=== PATIENT | male | born 1960 | race Caucasian/White ===

== ENCOUNTER 2020-12-08 07:10 | Inpatient (IN) | payer OTHER, SELFPAY ==
[~2020-12-08] VITALS: Ht 157.5 cm; Wt 72.6 kg
[2020-12-08] MEDS: DEXT 5% /NACL 0.9% 1,000 ML IV SCH ×2 (02:30→11:38)
--- NOTE | 2020-12-08 07:10 | NUR ---
Patient BIBA ALS, transferred to bed 4. RN evaluating the patient at bedside.
[2020-12-08 07:15] VITALS: BP 117/68
--- NOTE | 2020-12-08 07:18 | NUR ---
Dr. Angulo is evaluating the patient at bedside.
[2020-12-08] MEDS ORDERED: NACL 0.9% 1,000 ML IV ONE (07:20)
[2020-12-08] MEDS ORDERED: PANTOPRAZOLE 80 MG in NACL 0.9% 100 ML IVP SCH (07:20)
[2020-12-08] MEDS ORDERED: PANTOPRAZOLE 40 MG INJ VIAL IVP ONE (07:20)
--- NOTE | 2020-12-08 07:40 | NUR ---
PT TAKEN TO CT VIA VERONICA
--- NOTE | 2020-12-08 07:42 | NUR ---
60 Y/O MALE BIBA C/O SYNCOPE TODAY. PER EMS PT HAS BLACK TARRRY STOOL FOR 3 DAYS WITH DIZZINESS. DENIES LOC, NAUSEA, VOMITING, OR PAIN. PT IS PALE SKIN COLOR. WARM TO TOUCH. ABD SOFT NON TENDER. MEDHX: DENIES NKA
--- NOTE | 2020-12-08 07:47 | NUR ---
PT RETURNED FROM CT
--- NOTE | 2020-12-08 08:00 | NUR ---
BLOOD LABS, URINE AND GIA SAMPLES COLLECTED AND SENT TO LAB. HANDED TO CPT KT
[2020-12-08 08:15] LABS: LYMPHOCYTES # (AUTO) 1.2 K/uL (2.0-11.5); MEAN CORPUSCULAR HEMOGLOBIN 31 pg (27-31); MONOCYTES # (AUTO) 0.7 K/uL (0.8-1.0); RED BLOOD CELL COUNT(AUTO) 2.07 MIL/uL (4.20-6.10)
[2020-12-08 08:16] LABS: APPEARANCE,URINE CLEAR (CLEAR); BILIRUBIN,URINE NEGATIVE (NEGATIVE); BLOOD, URINE 1+ (NEGATIVE); COLOR,URINE YELLOW (YELLOW); LEUKOCYTE ESTERASE ,URINE NEGATIVE (NEGATIVE); NITRITE, URINE NEGATIVE (NEGATIVE); UGLUCOSE TRACE (NEGATIVE)
[2020-12-08 08:19] LABS: BASOPHILS % (AUTO) 0.2 % (0.0-2.0); LYMPHOCYTES % (AUTO) 7.9 % (20.5-51.1); MEAN CORPUSCULAR HGB CONC 34 g/dL (33-37); MEAN CORPUSCULAR VOLUME 89.4 fL (80-94); MONOCYTES % (AUTO) 4.9 % (1.7-9.3); NEUTROPHILS # (AUTO) 13.2 K/uL (1.8-7.7); PLATELET COUNT (AUTO) 181 K/uL (140-450); RED CELL DISTRIBUTION WIDTH 14.8 % (11.6-13.7); WHITE BLOOD COUNT (AUTO) 15.2 K/uL (4.8-10.8)
[2020-12-08 08:25] LABS: ANION GAP 18.3 (8-16); CARBON DIOXIDE 18.6 mmol/L (21-32); CREATININE 1.2 mg/dL (0.6-1.3); HEMATOCRIT 18.5 % (36-52); HEMOGLOBIN 6.4 g/dL (12.0-18.0); POTASSIUM 3.9 mmol/L (3.5-5.1)
[2020-12-08 08:31] LABS: ALBUMIN 2.8 g/dL (3.4-5.0); TOTAL BILIRUBIN 0.4 mg/dL (0.0-1.0)
[2020-12-08] MEDS ORDERED: NACL 0.9% 1,500 ML IV ONE (08:40)
[2020-12-08 08:45] LABS: HYALINE CASTS, URINE 0-10 /LPF (None Seen); RBC,URINE 0-5 /HPF (0-5); WBC,URINE 0-5 /HPF (0-5)
[2020-12-08] MEDS ORDERED: cefTRIAXone 1,000 MG VIAL ONE (08:50)
[2020-12-08 08:51] LABS: PROTHROMBIN TIME 10.8 secs (10.8-13.4)
--- NOTE | 2020-12-08 09:45 | NUR ---
Consent signed per DR ELIZABETH agreeing to administration of blood. Blood has been type and crossmatched. Blood sent from blood bank. Information on unit of blood checked against patient wristband at bedside by two nurses. All information matches. Patient or responsible republican informed of potential complications associated with blood transfusion. Informed of possible transfusion reaction symptoms. Aware of need to notify nurse at once of itching, shortness of breath, flushing, feeling of impending doom, or other symptoms not previously present. Vital signs taken within 5 minutes prior to initiation of transfusion. RN will remain with patient for first 15 minutes of transfusion at which time vital signs will be re-assessed.
--- NOTE | 2020-12-08 09:59 | NUR ---
The patient's niece, Osmar Fung, may be reached at [phone].
--- NOTE | 2020-12-08 10:03 | NUR ---
The patient's sister, Crystal, is at bedside.
[2020-12-08] MEDS ORDERED: POTASSIUM CHLORIDE 10 MEQ TABER PO PRN (10:25)
[2020-12-08] MEDS ORDERED: ONDANSETRON 4 MG/2 ML VIAL IVP PRN (10:25)
[2020-12-08] MEDS ORDERED: LORazepam 1 MG TAB PO PRN (10:25)
[2020-12-08] MEDS ORDERED: MAG SULF 2000 MG/WATER PREMIX 50 ML IV PRN (10:25)
[2020-12-08] MEDS ORDERED: HYDROcodone/APAP 5/325 MG 1 TAB TAB PO PRN (10:25)
[2020-12-08] MEDS ORDERED: MORPHINE SULFATE 4 MG/ML SYR IVP PRN (10:25)
[2020-12-08] MEDS ORDERED: MAGNESIUM OXIDE 400 MG TAB PO PRN (10:25)
[2020-12-08] MEDS ORDERED: KCL 20 MEQ/WATER INJ PREMIX 200 ML IV PRN (10:25)
[2020-12-08] MEDS ORDERED: ACETAMINOPHEN 325 MG TAB PO PRN (10:25)
--- NOTE | 2020-12-08 10:44 | NUR ---
LAB AT BEDSIDE
--- NOTE | 2020-12-08 11:45 | NUR ---
Patient awake, resting in bed. Vital Signs within normal limits. Respirations even and unlabored. Chest rise is symmetrical. Will continue to monitor.
--- NOTE | 2020-12-08 13:00 | NUR ---
2ND UNIT OF BLOOD STARTED, VERIFIED WITH TWO RN'S AT BEDSIDE. GILBERTO BAUER AND TRELL BAUER
--- NOTE | 2020-12-08 13:45 | NUR ---
Dr. David Worthy is evaluating the patient at bedside.
--- NOTE | 2020-12-08 14:00 | NUR ---
Patient will be admitted to care of DR BERTRAND. Admited to TELEMETRY. Will go to room 112 B. Belongings list completed. Report to SAM BAUER. Pt will go to OR for EGD and transferred to 112 B after procedure.
[2020-12-08] MEDS ORDERED: fentaNYL citrate 0.05 MG/ML VIAL ONE (14:22)
[2020-12-08] MEDS ORDERED: MIDAZOLAM 5 MG/5 ML VIAL ONE (14:22)
[2020-12-08] MEDS ORDERED: diphenhydrAMINE 50 MG/ML VIAL ONE (14:22)
[2020-12-08] MEDS ORDERED: MIDAZOLAM 2 MG/2 ML VIAL IVP ONE (14:45)
[2020-12-08] MEDS ORDERED: SENNA 8.6 MG TAB PO SCH (14:45)
[2020-12-08] MEDS ORDERED: fentaNYL citrate 0.05 MG/ML VIAL IVP ONE (14:45)
--- NOTE | 2020-12-08 15:05 | NUR ---
RECEIVED PATIENT FROM OR S/P EGD. WITH BLOOD TRANSFUSION TO RIGHT AC 20G. PT ARRIVED BY VERONICA. ASLEEP, AWAKABLE BY VOICE ON RA. NO ACUTE DISTRESS NOTED AT THIS TIME. WILL CONTINUE TO MONITOR.
[2020-12-08 15:10] VITALS: BP 96/52
--- NOTE | 2020-12-08 15:10 | NUR ---
RECEIVED REPORT FROM ER NURSE FOR CONTINUITY OF CARE. PATIENT CAME WITH CC BLACK TARRY STOOL. DX WITH GI BLEEDING. NO PAST MEDICAL HISTORY PER ER NURSE. AAOX4, AMBULATORY, IV TO RIGHT AC 20G TRANSFUSING SECOND UNIT OF BLOOD, TOTALLY 3 UNITS OF BLOOD ORDERED. H/H 6.4/18.5. IVF INFUSING D5 NS@ 80ML/HR AND PROTONIX @ 10ML/HR. WILL CONTINUE TO MONITOR.
[2020-12-08] MEDS: LACTULOSE 20 GM/30 ML UDC PO SCH ×2 (17:18→19:56)
[2020-12-08] MEDS: PANTOPRAZOLE 80 MG in NACL 0.9% 100 ML IVP SCH (17:57)
--- NOTE | 2020-12-08 19:10 | NUR ---
ENDORSED PATIENT TO REHABILITATION CONSULTANT RN FOR CONTINUITY OF CARE. PATIENT IN STABLE CONDITION.
--- NOTE | 2020-12-08 19:11 | NUR ---
RECEIVED REPORT FROM DAY SHIFT NURSE. PT IN BED RESTING. PT AAOX4, AMBULATORY, AND ABLE TO MAKE NEEDS KNOWN. RESPIRATIONS ARE EVEN AND UNLABORED TO ROOM AIR. ABDOMEN IS SOFT AND NON-TENDER. SKIN IS WARM, DRY, AND INTACT. PT WITH IV ACCESS ON LEFT HAND G 20 AND RIGHT AC G20 BOTH PATENT AND INTACT, IVF INFUSING WELL. PT DENIES ANY PAIN OR DISCOMFORT AT THIS TIME. NO REQUESTS MADE. PT KEPT COMFORTABLE, CALL LIGHT WITHIN REACH. WILL CONTINUE TO MONITOR.
--- NOTE | 2020-12-08 19:56 | NUR ---
VS STABLE. SCHEDULED MEDS GIVEN ORDERED. PT NOT IN DISTRESS AND DENIES ANY PAIN OR DISCOMFORT. PT KEPT COMFORTABLE. WILL CONTINUE TO MONITOR.
[2020-12-08 20:00] VITALS: BP 105/53
[2020-12-08] MEDS ORDERED: MAGNESIUM CITRATE 300 ML BTL PO SCH (20:00)
--- NOTE | 2020-12-08 20:50 | NUR ---
BLOOD TRANSFUSION STARTED. 2 NURSE VERIFICATION DONE PRIOR. PRE TRANSFUSION VS STABLE. WILL CONTINUE TO MONITOR.
[2020-12-08] MEDS ORDERED: ZOLPIDEM 5 MG TAB PO PRN (21:00)
--- NOTE | 2020-12-08 22:52 | NUR ---
PT RESTING IN BED. BLOOD TRANSFUSION ONGOING. VSS. PT DENIES ANY PAIN OR DISCOMFORT AT THIS TIME. NO REQUESTS MADE AT THIS TIME. PT KEPT COMFORTABLE. CALL LIGHT WITHIN REACH. WILL CONTINUE TO MONITOR.
--- NOTE | 2020-12-08 23:35 | NUR ---
BLOOD TRANSFUSION DONE. PT TOLERATED WELL. NO REACTION NOTED. VSS. PT DENIES ANY PAIN OR DISCOMFORT. WILL CONTINUE TO MONITOR.
[2020-12-09] VITALS: BP 109/51
--- NOTE | 2020-12-09 00:21 | NUR ---
VS STABLE. PT IN BED RESTING. IVF INFUSING WELL. PT KEPT NPO. PT NOT IN PAIN. NO DISTRESS NOTED. NO REQUESTS MADE AT THIS TIME. PT KEPT COMFORTABLE. SAFETY MEASURES IN PLACE, CALL LIGHT WITHIN REACH. WILL CONTINUE TO MONITOR.
[2020-12-09 01:36] LABS: BASOPHILS % (AUTO) 0.3 % (0.0-2.0); EOSINOPHILS # (AUTO) 0.1 K/uL (0-0.4); EOSINOPHILS % (AUTO) 0.7 % (0.0-4.0); HEMATOCRIT 26.5 % (36-52); LYMPHOCYTES # (AUTO) 2.3 K/uL (2.0-11.5); LYMPHOCYTES % (AUTO) 18.3 % (20.5-51.1); MEAN CORPUSCULAR HEMOGLOBIN 30 pg (27-31); MEAN CORPUSCULAR HGB CONC 34 g/dL (33-37); MEAN CORPUSCULAR VOLUME 88.9 fL (80-94); MONOCYTES % (AUTO) 7.9 % (1.7-9.3); NEUTROPHILS % (AUTO) 72.8 % (42.2-75.2); PLATELET COUNT (AUTO) 139 K/uL (140-450); RED BLOOD CELL COUNT(AUTO) 2.98 MIL/uL (4.20-6.10); RED CELL DISTRIBUTION WIDTH 14.3 % (11.6-13.7); WHITE BLOOD COUNT (AUTO) 12.4 K/uL (4.8-10.8)
--- NOTE | 2020-12-09 02:16 | NUR ---
PT ASLEEP. VISIBLE CHEST RISE AND FALL NOTED. PT NOT IN DISTRESS. NO S/SX OF PAIN OR DISCOMFORT. PT KEPT COMFORTABLE. SAFETY MEASURES IN PLACE. CALL LIGHT WITHIN REACH. WILL CONTINUE TO MONITOR.
[2020-12-09] MEDS: PANTOPRAZOLE 80 MG in NACL 0.9% 100 ML IVP SCH ×2 (03:19→12:30)
[2020-12-09 04:00] VITALS: BP 102/57
--- NOTE | 2020-12-09 04:23 | NUR ---
VS STABLE. PT DENIES ANY PAIN OR DISCOMFORT AT THIS TIME. NO REQUESTS MADE AT THIS TIME. IVF INFUSING WELL. PT KEPT COMFORTABLE. CALL LIGHT WITHIN REACH. WILL CONTINUE TO MONITOR.
[2020-12-09] MEDS ORDERED: MAGNESIUM CITRATE 300 ML BTL PO SCH (06:00)
[2020-12-09 06:46] LABS: BASOPHILS # (AUTO) 0.1 K/uL (0.00-0.22); BASOPHILS % (AUTO) 0.6 % (0.0-2.0); EOSINOPHILS # (AUTO) 0.2 K/uL (0-0.4); EOSINOPHILS % (AUTO) 1.4 % (0.0-4.0); HEMATOCRIT 27.1 % (36-52); HEMOGLOBIN 9.2 g/dL (12.0-18.0); LYMPHOCYTES % (AUTO) 26.2 % (20.5-51.1); MEAN CORPUSCULAR HEMOGLOBIN 30 pg (27-31); MEAN CORPUSCULAR HGB CONC 34 g/dL (33-37); MEAN CORPUSCULAR VOLUME 88.9 fL (80-94); MONOCYTES # (AUTO) 0.7 K/uL (0.8-1.0); MONOCYTES % (AUTO) 6.1 % (1.7-9.3); NEUTROPHILS # (AUTO) 7.6 K/uL (1.8-7.7); NEUTROPHILS % (AUTO) 65.7 % (42.2-75.2); PLATELET COUNT (AUTO) 142 K/uL (140-450); RED BLOOD CELL COUNT(AUTO) 3.05 MIL/uL (4.20-6.10); RED CELL DISTRIBUTION WIDTH 14.2 % (11.6-13.7); WHITE BLOOD COUNT (AUTO) 11.5 K/uL (4.8-10.8)
[2020-12-09 07:02] LABS: CHOL/HDL RATIO 5.2 (1-4.5); MAGNESIUM 2.4 mg/dL (1.8-2.4); PHOSPHORUS 1.7 mg/dL (2.5-4.9)
[2020-12-09 07:04] LABS: ALBUMIN 2.8 g/dL (3.4-5.0); ANION GAP 12.5 (8-16); POTASSIUM 3.5 mmol/L (3.5-5.1); TOTAL BILIRUBIN 0.7 mg/dL (0.0-1.0)
--- NOTE | 2020-12-09 07:24 | NUR ---
ENDORSED TO DAY SHIFT NURSE FOR CONTINUITY OF CARE
--- NOTE | 2020-12-09 07:25 | NUR ---
RECEIVED PATIENT FROM NIGHT NURSE. PATIENT IN BED AWAKE AND ALERT, ORIENTED X4. RESP EVEN AND UNLABORED ON ROOM AIR. DENIED OF PAIN AT THIS TIME. RAC 20G INFUSING D5NS AND PROTONIX. PLAN OF CARE DISCUSSED, PATIENT VERBALIZED UNDERSTANDING. HOB ELEVATED. SAFETY MEASURES IN PLACE. CALL LIGHT WITHIN REACH. WILL CONTINUE TO MONITOR.
[2020-12-09 08:00] VITALS: BP 104/50
--- NOTE | 2020-12-09 08:58 | NUR ---
PATIENT HAS BEEN SCREENED AND CATEGORIZED LOW NUTRITION RISK. PATIENT WILL BE SEEN WITHIN 7 DAYS OF ADMISSION. 12/14/[address]
[2020-12-09] MEDS: LACTULOSE 20 GM/30 ML UDC PO SCH ×2 (09:16→12:30)
--- NOTE | 2020-12-09 09:16 | NUR ---
PATIENT IN BED AWAKE AND ALERT. RESP EVEN AND UNLABORED ON ROOM AIR. DENIED OF PAIN AT THIS TIME. MORNING ROUTINE MEDICATION GIVEN, PATIENT TOLERATED WELL. PATIENT REPORTED HAVING BOWEL MOVEMENT, BLACK TARRY STOOL, NO ACTIVE BLEEDING AT THIS TIME. COLONOSCOPY SCHEDULED AT [address] MEJÍA. PLAN OF CARE DISCUSSED, PATIENT VERBALIZED UNDERSTANDING. SKIN WARM TO TOUCH AND DRY. PATIENT AMBULATED TO THE BATHROOM WITH STEADY GAIT. LH IV ACCESS DISLODGED. RAC 20G INTACT AND PATENT INFUSING WELL. CALL LIGHT WITHIN REACH. WILL CONTINUE TO MONITOR.
[2020-12-09] MEDS: DEXT 5% /NACL 0.9% 1,000 ML IV SCH (11:25)
--- NOTE | 2020-12-09 11:25 | NUR ---
PATIENT AWAKE AND ALERT. ABLE TO AMBULATE TO THE BATHROOM WITH STEADY GAIT. DENIED OF PAIN AT THIS TIME. CALL LIGHT WITHIN REACH. WILL CONTINUE TO MONITOR.
[2020-12-09 12:00] VITALS: BP 125/72
[2020-12-09] MEDS ORDERED: SUCR1TAB35 PO (12:01)
[2020-12-09] MEDS ORDERED: PANT40EC PO (12:01)
--- NOTE | 2020-12-09 12:41 | NUR ---
DR MEJÍA MADE AWARE OF PATIENT BOWEL BEING CLEAR FOR PROCEDURE.
[2020-12-09] MEDS ORDERED: MIDAZOLAM 5 MG/5 ML VIAL ONE (13:00)
[2020-12-09] MEDS ORDERED: diphenhydrAMINE 50 MG/ML VIAL ONE (13:00)
[2020-12-09] MEDS ORDERED: fentaNYL citrate 0.05 MG/ML VIAL ONE (13:00)
--- NOTE | 2020-12-09 13:14 | NUR ---
PATIENT LEFT TO OR FOR COLONOSCOPY PROCEDURE WITH DR MEJÍA. PATIENT LEFT IN STABLE CONDITION.
[2020-12-09] MEDS: MIDAZOLAM 2 MG/2 ML VIAL IVP ONE ×2 (13:41→14:52)
[2020-12-09] MEDS: fentaNYL citrate 0.05 MG/ML VIAL IVP ONE ×2 (13:42→14:51)
--- NOTE | 2020-12-09 14:04 | NUR ---
DC PLANNING: CALLED [facility] RAOUL ELIEZER [phone] LEFT A MESSAGE. FAXED THE ORDER FOR OUT PATIENT REFERRAL FOR UROLOGIST AND GI. CM TO FOLLOW Addendum: 12/09/20 at 1714 by Sheeba Waterman RN DC PLANNING: RECEIVED A CALL FROM AT [facility] PROVIDED THE 3 DR'S APPOINTMENT. WITH [employer] APPLICATOR PA WITH DR SAMMY HOWARD ON DECEMBER 11, 2020 AT 10:30AM TELE CONFERENCE. WITH GI DR EVELYN WINTER ON JANUARY 07, 2021 AT 5 [place] [id number] [facility] [address] [place] ,[id number] # [phone] NATALIE IVEY ON December AT 11:30 AM THE [address]ESS [id number] [facility] [address] [place] [address] TEL # [phone] . PROVIDE APPOINTMENT REMINDER TO PT. CLARIFIED HIS PHONE NUMBER [phone] .PATIENT VERBALIZED UNDERSTANDING.
--- NOTE | 2020-12-09 14:20 | NUR ---
PATIENT CAME BACK FROM COLONOSCOPY PROCEDURE. MILD DROWSY BUT ALERT. ABLE TO FOLLOW COMMANDS. RESP EVEN AND UNLABORED ON ROOM AIR. DENIED OF PAIN AT THIS TIME. CALL LIGHT WITHIN REACH. WILL CONTINUE TO MONITOR.
[2020-12-09 16:00] VITALS: BP 108/61
[2020-12-09 16:36] VITALS: BP 108/61
[2020-12-09] MEDS ORDERED: FERROUS SULFATE 325 MG TABEC PO SCH (17:00)
[2020-12-09] MEDS ORDERED: metroNIDAZOLE 500 MG TAB PO SCH (17:00)
--- NOTE | 2020-12-09 17:15 | NUR ---
PATIENT LEFT DISCHARGED HOME WITH FAMILY. DISCHARGE INSTRUCTIONS GIVEN. DIESEL MECHANIC CONSTRUCTION AT BEDSIDE GIVING PATIENT INSTRUCTIONS AND FOLLOW UP APPOINTMENTS MADE. PATIENT VERBALIZED UNDERSTANDING. VACC N/A. PATIENT LEFT IN STABLE CONDITION.
--- NOTE | 2020-12-09 19:41 | NUR ---
LATE ENTRY- PANTOPRAZOLE IV INFUSION DISCONTINUED AT 1400
[2020-12-09] MEDS ORDERED: AMOXICILLIN 500 MG CAP PO SCH (21:00)
[2020-12-09] MEDS ORDERED: CLARITHROMYCIN 500 MG TAB PO SCH (21:00)
[2020-12-09] MEDS ORDERED: PANTOPRAZOLE 40 MG TABEC PO SCH (21:00)
[2020-12-10] MEDS ORDERED: LACTULOSE 20 GM/30 ML UDC PO SCH (09:00)
== END 2020-12-09 17:50 | disposition home or self-care (01) | DRG 378 ==
LOC: MED 07:10 → MTU 10:27
PROVIDERS: ADMIT Hospitalist; ATTEND Hospitalist
PROC: 30233N1 Transfusion of Nonautologous Red Blood Cells into Peripheral Vein, Percutaneous Approach (ICD-10-PCS; 2020-12-08)
PROC: 0DB68ZX Excision of Stomach, Via Natural or Artificial Opening Endoscopic, Diagnostic (ICD-10-PCS; principal; 2020-12-08 14:00)
PROC: 0DJD8ZZ Inspection of Lower Intestinal Tract, Via Natural or Artificial Opening Endoscopic (ICD-10-PCS; 2020-12-09)
DX: K26.4 Chronic or unspecified duodenal ulcer with hemorrhage (principal); R65.10 Systemic inflammatory response syndrome (SIRS) of non-infectious origin without acute organ dysfunction; D50.0 Iron deficiency anemia secondary to blood loss (chronic); R73.9 Hyperglycemia, unspecified; N28.1 Cyst of kidney, acquired; Z20.822 Contact with and (suspected) exposure to COVID-19; K29.70 Gastritis, unspecified, without bleeding; K57.30 Diverticulosis of large intestine without perforation or abscess without bleeding; Z68.29 Body mass index [BMI] 29.0-29.9, adult
CPT/HCPCS: 36415; 36430; 71045; 76770; 80053; 81001; 82150; 83036; 83605; 83690; 83735; 83880; 84100; 84484; 85025; 85610; 85730; 86677; 86886; 86900; 86901; 86920; 87040; 87081; 87086; 93005; 96365; 96368; 99291; C9113; J0696; J1200; J2250; J3010; J7030; P9016